=== PATIENT | male | born 1990 | race American Indian/Alaskan Native ===

== ENCOUNTER 2019-07-06 19:27 | Emergency (ER) | payer SELFPAY ==
[2019-07-06] MEDS ORDERED: levETIRAcetam 1000 MG/NS 0.75% 1,000 MG/100 ML BAG IV ONE (19:43)
--- NOTE | 2019-07-06 19:47 | Emergency Department Report ---
ED Seizure HPI - General Stated Complaint: SEIZURE Time Seen by Provider: 07/06/19 19:42 - History of Present Illness Initial Comments: Patient is a 29-year-old male with past medical history of seizure disorder who takes Keppra and states he's been compliant have a tonic-clonic seizure prior to arrival. Patient had a 10 minute postictal phase according to significant other and the patient did bite the right side of his tongue. Patient is returned back to his normal baseline.. Patient denies any nausea vomiting fevers neck stiffness diarrhea. Patient believes he got too hot and this is why he had the seizure. Patient states he was underneath blankets and was feeling very warm. Patient does have a low-grade temperature and states he has had a slight cough which is non- productive and body aches for the past several days Description of Episode: loss of consciousness, tonic-clonic movement, post-event confusion Seizure History: known seizure disorder - Related Data Previous Rx's Medication Instructions Recorded Last Taken Type Benzonatate [Tessalon Perles] 100 mg PO Q8HR #10 capsule 07/06/19 Unknown Rx Fluticasone [Flonase] 1 spray NS QDAY #1 bottle 07/06/19 Unknown Rx levETIRAcetam [Keppra TAB] 500 mg PO BID #60 tablet 07/06/19 Unknown Rx predniSONE [Deltasone] 20 mg PO QDAY #5 tab 07/06/19 Unknown Rx Allergies Allergy/AdvReac Type Severity Reaction Status Date / Time No Known Allergies Allergy Unverified 07/06/19 19:56 ED Review of Systems ROS: Stated complaint: SEIZURE Other details as noted in HPI Comment: All other systems reviewed and negative ED Past Medical Hx - Medications Home Medications: Home Medications Medication Instructions Recorded Confirmed Last Taken Type Benzonatate [Tessalon Perles] 100 mg PO Q8HR #10 capsule 07/06/19 Unknown Rx Fluticasone [Flonase] 1 spray NS QDAY #1 bottle 07/06/19 Unknown Rx levETIRAcetam [Keppra TAB] 500 mg PO BID #60 tablet 07/06/19 Unknown Rx predniSONE [Deltasone] 20 mg PO QDAY #5 tab 07/06/19 Unknown Rx ED Physical Exam - General General appearance: alert, in no apparent distress - Head Head exam: Present: atraumatic, normocephalic - Eye Eye exam: Present: normal appearance - ENT ENT exam: Present: normal orophraynx, mucous membranes moist, other (small abrasion to the right side of the patient's tongue) - Neck Neck exam: Present: normal inspection, full ROM. Absent: tenderness, meningismus - Respiratory Respiratory exam: Present: normal lung sounds bilaterally. Absent: respiratory distress, wheezes, rales, rhonchi - Cardiovascular Cardiovascular Exam: Present: regular rate, normal rhythm, normal heart sounds. Absent: systolic murmur, diastolic murmur, rubs, gallop - GI/Abdominal GI/Abdominal exam: Present: soft, normal bowel sounds. Absent: distended, tenderness, guarding, rebound - Rectal Rectal exam: Present: deferred - Extremities Exam Extremities exam: Present: normal inspection - Back Exam Back exam: Present: normal inspection - Neurological Exam Neurological exam: Present: alert, oriented X3 - Psychiatric Psychiatric exam: Present: normal affect, normal mood - Skin Skin exam: Present: warm, dry, intact, normal color. Absent: rash ED Course Vital Signs 07/06/19 19:35 Temperature 100.4 F H Pulse Rate 88 Respiratory 20 Rate Blood Pressure 117/68 Blood Pressure 117/68 [Left] O2 Sat by Pulse 97 Oximetry ED Medical Decision Making - Lab Data Result diagrams: 07/06/19 20:51 07/06/19 20:51 Lab Results 07/06/19 07/06/19 Range/Units 20:51 20:51 WBC 9.0 (4.5-11.0) K/mm3 RBC 4.69 (3.65-5.03) M/mm3 Hgb 13.5 (11.8-15.2) gm/dl Hct 40.3 (35.5-45.6) % MCV 86 (84-94) fl MCH 29 (28-32) pg MCHC 33 (32-34) % RDW 13.3 (13.2-15.2) % Plt Count 165 (140-440) K/mm3 Lymph % (Auto) 5.9 L (13.4-35.0) % [place] % (Auto) 10.6 H (0.0-7.3) % Eos % (Auto) 0.6 (0.0-4.3) % Baso % (Auto) 0.5 (0.0-1.8) % Lymph # 0.5 L (1.2-5.4) K/mm3 [place] # 1.0 H (0.0-0.8) K/mm3 Eos # 0.1 (0.0-0.4) K/mm3 Baso # 0.0 (0.0-0.1) K/mm3 Seg Neutrophils % 82.4 H (40.0-70.0) % Seg Neutrophils # 7.4 (1.8-7.7) K/mm3 Sodium 130 L (137-145) mmol/L Potassium 4.2 (3.6-5.0) mmol/L Chloride 95.1 L (98-107) mmol/L Carbon Dioxide 23 (22-30) mmol/L Anion Gap 16 mmol/L BUN 9 (9-20) mg/dL Creatinine 0.7 L (0.8-1.5) mg/dL Estimated GFR > 60 ml/min BUN/Creatinine Ratio 13 % Glucose 105 H (75-100) mg/dL Calcium 8.5 (8.4-10.2) mg/dL - Medical Decision Making She loaded with a gram of Keppra. The patient does have a low sodium and chloride level consistent with possible early dehydration. Patient given 2 L of normal saline. Patient has a low-grade temperature and does have flu like symptoms. Patient's has a normal white count. The patient be discharged home. Patient given instructions on viral syndrome and things to look out for and asked several days. Critical care attestation.: If time is entered above; I have spent that time in minutes in the direct care of this critically ill patient, excluding procedure time. ED Disposition Clinical Impression: Breakthrough seizure, Flu-like symptoms Disposition: DC-01 TO HOME OR SELFCARE Is pt being admited?: No Does the pt Need Aspirin: No Condition: Stable Instructions: Epilepsy (ED), Influenza (ED), Fever in Adults (ED) Referrals: BEBO PRESLEY MD [Referring] - 3-5 Days Time of Disposition: 22:35
[2019-07-06 19:49] VITALS: BP 117/68
[2019-07-06 21:05] LABS: Basophils % (Auto) 0.5 % (0.0-1.8); Eosinophils # (Auto) 0.1 K/mm3 (0.0-0.4); Eosinophils % (Auto) 0.6 % (0.0-4.3); Hematocrit 40.3 % (35.5-45.6); Hemoglobin 13.5 gm/dl (11.8-15.2); Lymphocytes # (Auto) 0.5 K/mm3 (1.2-5.4); Lymphocytes % (Auto) 5.9 % (13.4-35.0); Mean Corpuscular HGB Conc 33 % (32-34); Mean Corpuscular Volume 86 fl (84-94); Monocytes % (Auto) 10.6 % (0.0-7.3); Platelet Count 165 K/mm3 (140-440); Red Blood Count 4.69 M/mm3 (3.65-5.03); Red Cell Distribution Width 13.3 % (13.2-15.2)
[2019-07-06 21:25] LABS: BUN/Creatinine Ratio 13; Blood Urea Nitrogen 9 mg/dL (9-20); Calcium 8.5 mg/dL (8.4-10.2); Hemolysis Index 9
[2019-07-06] MEDS ORDERED: SODIUM CHLORIDE 0.9% 1000 ML 1,000 ML IV ONE ×2 (21:31)
== END 2019-07-06 23:25 | disposition home or self-care (01) ==
LOC: ED 19:27
DX: G40.919 Epilepsy, unspecified, intractable, without status epilepticus (principal); R05 Cough; M79.10 Myalgia, unspecified site
CPT/HCPCS: 36415; 80048; 85025; 96361; 96365; 99284; J1953; J7030